=== PATIENT | male | born 1945 | race Caucasian/White ===

== ENCOUNTER 2018-03-20 07:50 | Day surgery (SDC) | payer MEDICARE, BC ==
[~2018-03-20 07:50] MED LIST: Midazolam 1 MG/ML 2 ML SDV ONE; fentaNYL 100 MCG/2 ML SDV ONE
[2018-03-20] MEDS ORDERED: fentaNYL 100 MCG/2 ML SDV IV ONE ×3 (07:51→08:54)
[2018-03-20] MEDS ORDERED: Midazolam 1 MG/ML 2 ML SDV IV ONE ×7 (07:51→09:01)
[2018-03-20] MEDS ORDERED: Lactated Ringers 1,000 ML IV SCH (08:30)
[2018-03-20 11:12] VITALS: BP 137/48
--- NOTE | 2018-03-20 16:56 | OR ---
DATE: 03/20/2018 PREOPERATIVE DIAGNOSIS: Screening colonoscopy. POSTOPERATIVE DIAGNOSIS: Screening colonoscopy. PROCEDURE: Total colonoscopy. ANESTHESIA: Conscious sedation with IV Versed and fentanyl. SPECIMEN: None. OPERATIVE FINDINGS: Moderate left-sided diverticulosis, otherwise normal. RECOMMENDATION: Secondary to the patient's age, he should have a colonoscopy based on symptoms only. INDICATION FOR PROCEDURE: This 72-year-old male referred by [facility] for evaluation of screening colonoscopy. He had one approximately 12 years ago. PROCEDURE IN DETAIL: After adequate preparation, a colonoscope was inserted into the rectum. This was easily passed all the way to the cecum. Confirmation of the cecum was made by visualization of the ileocecal valve and palpation in the right lower quadrant. The bowel prep was good. On withdrawal of the scope, the only abnormality noted was moderate to significant diverticulosis in the left and sigmoid colon. A photograph of 2 different areas was taken. There were no masses, polyps, or growth. The rectal examination was also normal. Air was suctioned from the colon and the scope removed. [facility] /[id number]
== END 2018-03-20 11:10 | disposition home or self-care (01) ==
LOC: DL.ENDO 07:50
PROVIDERS: ATTEND Surgery
DX: Z12.11 Encounter for screening for malignant neoplasm of colon (principal); K57.30 Diverticulosis of large intestine without perforation or abscess without bleeding; Z87.891 Personal history of nicotine dependence
CPT/HCPCS: G0121; J2250; J3010; J7120

== ENCOUNTER → 2024-01-20 | Day surgery (SDC) | payer MEDICARE, BC ==
[~2024-01-20] MED LIST changes: +Acetaminophen 325 MG Tab PO PRN; +Acetaminophen/Codeine 300-30 MG Tab PO PRN; -Midazolam 1 MG/ML 2 ML SDV ONE; +Ondansetron 4 MG/2 ML SDV IVPUSH PRN; -fentaNYL 100 MCG/2 ML SDV ONE
[2024-01-20] MEDS: Proparacaine 0.5% Ophth Soln 15 ML Bottle EYELF ONE ×2 (07:17→08:18)
[2024-01-20] MEDS: Tropicamide 1% Ophth Soln 15 ML Bottle EYELF ONE (07:17)
[2024-01-20] MEDS: Moxifloxacin 0.5% Ophth Soln 3 ML Bottle EYELF ONE (07:18)
[2024-01-20] MEDS: Phenylephrine 10% Ophth Soln 5 ML Bot EYELF ONE (07:18)
[2024-01-20] MEDS: Timolol Maleate 0.5% Ophth Soln 5 ML Bottle EYELF ONE (07:18)
[2024-01-20] MEDS: Cataract Ophth Solution EYELF ONE (07:18)
[2024-01-20] MEDS: Povidone-Iodine 5% Sterile Ophth Soln 30 ML Bottle EYELF ONE ×2 (07:19→08:19)
[2024-01-20] MEDS: Sodium Chloride 0.9% 10 ML Syringe FLUSH PRN (07:42)
[2024-01-20] MEDS: Lidocaine 1% 30 ML SDV ONE (08:17)
[2024-01-20] MEDS: Apraclonidine 0.5% Ophth Soln 5 ML Bot EYELF ONE (08:18)
[2024-01-20] MEDS: Dexamethasone/Neomycin/Polymyxin B Ophth Oint 3.5 GM Tube EYELF ONE (08:19)
[2024-01-20] MEDS: Vancomycin 500 MG SDV EYELF ONE (08:19)
[2024-01-20] MEDS: Diclofenac Sodium 0.1% Ophth Soln 5 ML Bottle EYELF ONE (08:19)
[2024-01-20 09:01] VITALS: BP 151/68; PULSE 71
== END ==
LOC: DL.SDS 06:55
PROVIDERS: ATTEND Ophthalmology
DX: E11.36 Type 2 diabetes mellitus with diabetic cataract (principal); H25.812 Combined forms of age-related cataract, left eye; J44.89 Other specified chronic obstructive pulmonary disease; K21.9 Gastro-esophageal reflux disease without esophagitis; I10 Essential (primary) hypertension; E78.5 Hyperlipidemia, unspecified; G47.33 Obstructive sleep apnea (adult) (pediatric); Z87.891 Personal history of nicotine dependence; Z79.890 Hormone replacement therapy; Z79.899 Other long term (current) drug therapy
CPT/HCPCS: 00142; 99100; A9270-GY; J3370; J3490; V2788-GY

== ENCOUNTER 2024-02-15 07:57 | Day surgery (SDC) | payer MEDICARE, BC ==
[2024-02-15] MEDS ORDERED: Acetaminophen 325 MG Tab PO PRN (08:00)
[2024-02-15] MEDS ORDERED: Acetaminophen/Codeine 300-30 MG Tab PO PRN (08:00)
[2024-02-15] MEDS ORDERED: Ondansetron 4 MG/2 ML SDV IVPUSH PRN (08:00)
[2024-02-15] MEDS: Sodium Chloride 0.9% 10 ML Syringe FLUSH PRN (08:21)
[2024-02-15] MEDS: Proparacaine 0.5% Ophth Soln 15 ML Bottle EYERT ONE ×2 (08:23→10:05)
[2024-02-15] MEDS: Moxifloxacin 0.5% Ophth Soln 3 ML Bottle EYERT ONE (08:24)
[2024-02-15] MEDS: Povidone-Iodine 5% Sterile Ophth Soln 30 ML Bottle EYERT ONE ×2 (08:25→10:01)
[2024-02-15] MEDS: Tropicamide 1% Ophth Soln 15 ML Bottle EYERT ONE (08:26)
[2024-02-15] MEDS: Timolol Maleate 0.5% Ophth Soln 5 ML Bottle EYERT ONE (08:27)
[2024-02-15] MEDS: Phenylephrine 10% Ophth Soln 5 ML Bot EYERT ONE (08:27)
[2024-02-15] MEDS: Cataract Ophth Solution EYERT ONE (08:28)
[2024-02-15] MEDS: Lidocaine 1% 30 ML SDV ONE (10:02)
[2024-02-15] MEDS: Apraclonidine 0.5% Ophth Soln 5 ML Bot EYERT ONE (10:03)
[2024-02-15] MEDS: Diclofenac Sodium 0.1% Ophth Soln 5 ML Bottle EYERT ONE (10:03)
[2024-02-15] MEDS: Vancomycin 500 MG SDV EYERT ONE (10:04)
[2024-02-15] MEDS: Dexamethasone/Neomycin/Polymyxin B Ophth Oint 3.5 GM Tube EYERT ONE (10:04)
[2024-02-15 10:41] VITALS: BP 105/83; PULSE 60
== END 2024-02-15 10:45 | disposition home or self-care (01) ==
LOC: DL.SDS 07:57
PROVIDERS: ATTEND Ophthalmology
DX: E11.36 Type 2 diabetes mellitus with diabetic cataract (principal); H25.811 Combined forms of age-related cataract, right eye; J44.89 Other specified chronic obstructive pulmonary disease; K21.9 Gastro-esophageal reflux disease without esophagitis; E78.5 Hyperlipidemia, unspecified; I10 Essential (primary) hypertension; E03.9 Hypothyroidism, unspecified; E66.9 Obesity, unspecified; G47.33 Obstructive sleep apnea (adult) (pediatric); Z79.899 Other long term (current) drug therapy; Z79.890 Hormone replacement therapy; Z87.891 Personal history of nicotine dependence; Z68.34 Body mass index [BMI] 34.0-34.9, adult
CPT/HCPCS: 66984; A9270; J3370; V2788; 00142; 99100; J3490

== ENCOUNTER 2024-06-04 16:37 | Emergency (ER) | payer MEDICARE, BC ==
[2024-06-04 17:47] VITALS: BP 148/63; PULSE 69
[2024-06-04 17:59] LABS: BASOPHILS PERCENT AUTO 0.1 % (0.0-1.0); EOSINOPHILS PERCENT AUTO 2.2 % (1.0-3.0); HEMATOCRIT 44.5 % (40.0-54.0); HEMOGLOBIN 14.5 g/dL (14.0-18.0); LYMPHOCYTES PERCENT AUTO 11.8 % (20.5-50.1); MEAN CORPUSCULAR HGB CONC 32.6 g/dL (33.0-35.0); MEAN CORPUSCULAR VOLUME 95.3 fL (80-100); MONOCYTES PERCENT AUTO 7.1 % (2-8); NEUTROPHILS PERCENT AUTO 78.8 % (42.2-75.2); PLATELET COUNT,PLT 115 10^3/uL (150-450); RED BLOOD CELL COUNT 4.67 10^6/uL (4.6-6.2); WHITE BLOOD CELL COUNT,WBC 10.9 10^3/uL (5.0-10.0)
[2024-06-04 18:19] LABS: ALBUMIN 3.3 g/dL (3.4-5.0); ANION GAP 9.7 mEq/L (7-13); BILIRUBIN TOTAL 0.6 mg/dL (0.2-1.0); CALCIUM 9.4 mg/dL (8.5-10.1); CREATININE 0.9 mg/dL (0.70-1.30); EST CRCL DRUG DOSING (CG) 70.97 mL/min; POTASSIUM,K 3.7 mmol/L (3.5-5.1); PROTEIN TOTAL,TP 6.8 g/dL (6.4-8.2)
[2024-06-04 18:20] LABS: A/G RATIO 0.94
[2024-06-04] MEDS: Aspirin 81 MG Tab.Chew PO ONE (18:33)
[2024-06-04] MEDS: Clopidogrel 75 MG Tab PO ONE (18:33)
[2024-06-04] MEDS: Enoxaparin 100 MG/1 ML Syringe SUBCUT ONE (18:35)
[2024-06-04 18:37] LABS: PROTHROMBIN TIME 10.5 SEC (9.0-12.0); PTT,PARTIAL THROMBOPLSTIN TIME 23.9 SEC (22.0-34.0)
[2024-06-04] MEDS: Iopamidol 755 Mg/ML 100 ML Bottle IVPUSH ONE (18:48)
[2024-06-04 19:16] LABS: APPEARANCE,URINE CLEAR (CLEAR); BILIRUBIN,URINE NEGATIVE (NEGATIVE); COLOR,URINE YELLOW (YELLOW); GLUCOSE,URINE NEGATIVE (NEGATIVE); KETONES,URINE TRACE (NEGATIVE); LEUKOCYTE ESTERASE,URINE NEGATIVE (NEGATIVE); NITRITE,URINE NEGATIVE (NEGATIVE); OCCULT BLOOD,URINE NEGATIVE (NEGATIVE); PH,URINE 6.5 (5.0-9.0); PROTEIN,URINE NEGATIVE (NEGATIVE)
[2024-06-04] MEDS: Heparin Sodium 5,000 Units/ML Vial IVPUSH ONE (19:35)
[2024-06-04] MEDS: Heparin Sodium/0.45% NaCl 25,000 UNITS/500 ML BAG IV STA (19:36)
[2024-06-04 19:50] LABS: B-TYPE NATRIURETIC PEPTIDE,BNP 310 pg/ml (0-100)
== END 2024-06-04 21:40 ==
LOC: DL.ED 16:37
DX: I11.0 Hypertensive heart disease with heart failure (principal); I50.23 Acute on chronic systolic (congestive) heart failure; E78.00 Pure hypercholesterolemia, unspecified; E03.9 Hypothyroidism, unspecified; Z79.890 Hormone replacement therapy; Z79.899 Other long term (current) drug therapy
CPT/HCPCS: 36415; 71045; 71275; 80053; 81003; 82550; 83880; 84484; 85025; 85379; 85610; 85730; 96365; 96366; 96372; 99285; A9270; J1644; J1650; Q9967; 93010; 99291; 99292